=== PATIENT | male | born 1990 | race African-American/Black ===

== ENCOUNTER 2024-02-15 12:34 | Emergency (ER) | payer OTHER ==
[~2024-02-15] VITALS: Ht 177.8 cm; Wt 100.0 kg
[2024-02-15 12:39] VITALS: BP 133/96; PULSE 98; RESP 20; TEMP 98.6; O2SAT 99
[2024-02-15] MEDS: AMOX TR/POT CLAV 875 MG/125 MG TABLET PO ONE (13:23)
[2024-02-15] MEDS: IBUPROFEN 600 MG TABLET PO ONE (13:24)
[2024-02-15] MEDS: PERTUSS(ACELL),DIPH,TET/PF 0.5 ML SYRINGE [ADULT] IM. ONE (13:24)
[2024-02-15] MEDS ORDERED: AMOX-457 PO (13:45)
[2024-02-15] MEDS ORDERED: IBUP-1492 PO (13:45)
== END 2024-02-15 14:04 | disposition home or self-care (01) ==
LOC: EMS 12:36
DX: S41.151A Open bite of right upper arm, initial encounter (principal); W54.0XXA Bitten by dog, initial encounter; Y93.89 Activity, other specified; Y92.89 Other specified places as the place of occurrence of the external cause; Y99.8 Other external cause status
CPT/HCPCS: 90471; 90715; 99283